=== PATIENT | female | born 1925 | race Caucasian/White ===

== ENCOUNTER → 2016-06-29 | Outpatient (CLI) | payer MEDICARE ==
[~2016-06-29] MED LIST: ACETAMINOPHEN; ALBUTEROL17 GM; ALENDRONATE SOD70 MG; ALENDRONATE SOD70 MG PO; ALEVE; ALEVE220 M1; AMLODIPINE BESYL5 MG; AMLODIPINE BESYL5 MG PO; ANASTROZOLE1 MG PO; ARIMIDEX1 MG; ASPIRIN81 M2 PO; BETAMETHASONE V15 GM; BETIMOL5 ML; BETIMOL5 ML OU; CALCIUM1 TAB.CHEW; COZAAR PO; CRESTOR; DESYREL50 MG DOB; FOSAMAX; FOSAMAX70 MG PO; GABAPENTIN300 MG; GABAPENTIN300 MG PO; HCTZ; HCTZ PO; HYDROCHLOROTH12.5 M1 PO; I-CAPS AREDS S1 EACH; ICAPS MV TAB1 TAB.EC PO; LATANOPROST2.5 ML; LATANOPROST2.5 ML OP; LORTAB 7.5-5001 TAB PO; LOSARTAN POTASS50 MG; LOSARTAN POTASS50 MG PO; LOTENSIN20 MG PO; NEURONTIN300 MG; NEURONTIN300 MG PO; NORVASC PO; PANTOPRAZOLE SO40 MG; PANTOPRAZOLE SO40 MG PO; PHENERGAN25 MG PO; PRAVASTATIN SOD40 MG; PRAVASTATIN SOD40 MG PO; PRAVASTATIN SOD80 MG PO; PREDNISONE PO; PRILOSEC20 M1 PO; SULAR; SYSTANE; SYSTANE 0.3-0.415 ML; SYSTANE EYE DROPS; SYSTANE ULTRA 010 ML OU; TESSALON PERLE100 M1 DOB; TIMOPTIC 0.5% OP5 M2 OD; VIBRAMYCIN100 M1; VITAL-D RX TABL1 TAB PO; VITAMIN D; ZETIA
--- NOTE | ~2016-06-29 | CT71 ---
[facility] A Service [facility] RADIOLOGY TEXT RESULTS PATIENT: ELAN VELARDE LOCATION: [facility] : [birth year] UNIT #: [id number] AGE: [address]: Onur Zendejas MD SEX: F ORDER DR: [id number] [facility]. [place], [place] [address] [id number] O MR#: [id number] Acc #: [id number] NAME: ELAN VELARDE. : 1925 SEX: F STUDY DATE/TIME: 06/29/2016 10:31 UNIT: [facility] ROOM: STUDY DESCRIPTION: CT Head Wo Contrast Attending Physician: Onur Zendejas Jr., M.D. Referring Physician: Onur Zendejas Jr., M.D. Ordering Physician: Onur Zendejas Jr., M.D. Primary Care Physician: Onur Zendejas Jr., M.D. MEDICAL IMAGING REPORT This report is preliminary unless electronic signature is present EXAM Head CT without contrast HISTORY Occipital and frontal headaches for the past 2 weeks. TECHNIQUE Axial images were obtained without contrast. This CT exam was performed with one or more of the following radiation dose reduction techniques: automatic exposure control, adjustment of mA and/or kV according to patient size, and iterative reconstruction. FINDINGS Generalized atrophy is noted. There is no evidence of mass lesion, hemorrhage or edema. No midline shift is seen. Extraaxial structures are unremarkable. IMPRESSION Atrophy. No acute findings. No significant change from the previous examination of 12/08/2014. Dictated by... Nick Yanes M.D. THIS IS AN ELECTRONICALLY VERIFIED REPORT Nick Yanes M.D. at 06/29/2016 4:29 PM JAJA/felix TD: 06/29/2016 11:44 JOB #: [id number] MEDICAL IMAGING REPORT [facility] A [facility] RADIOLOGY TEXT RESULTS PATIENT: ELAN VELARDE LOCATION: [facility] : [birth year] UNIT #: [id number] AGE: [address]: Onur Zendejas MD SEX: F ORDER DR: Page 1 of 1 COPY
== END | disposition home or self-care (01) ==
LOC: CCAT 09:32
DX: R51 Headache (principal); G31.9 Degenerative disease of nervous system, unspecified
CPT/HCPCS: 70450

== ENCOUNTER → 2016-08-26 | Outpatient (CLI) | payer MEDICARE ==
--- NOTE | ~2016-08-26 | BD1 ---
[facility] A Service of [facility] RADIOLOGY TEXT RESULTS PATIENT: ELAN VELARDE LOCATION: [facility] : [birth year] UNIT #: [id number] AGE: [address]: Onur Zendejas MD SEX: F ORDER DR: [id number] [address] [address] [id number] O MR#: [id number] Acc #: [id number] NAME: ELAN VELARDE : 1925 SEX: F STUDY DATE/TIME: 08/26/2016 10:16 UNIT: [facility] ROOM: STUDY DESCRIPTION: BD Dexa Bone Dens 1+ Site Attending Physician: Onur Zendejas Jr., M.D. Referring Physician: Onur Zendejas Jr., M.D. Ordering Physician: Onur Zendejas Jr., M.D. Primary Care Physician: Onur Zendejas Jr., M.D. MEDICAL IMAGING REPORT This report is preliminary unless electronic signature is present. EXAM Bone density, spine, hip, 08/26/2016. HISTORY Osteo. Family history of osteoporosis in sister. Current smoker 72 years. TECHNIQUE Bone density scanning performed, upper 4 lumbar vertebral segments and both proximal femurs in [age]-year-old 122-pound female. The prior study from [facility], December 2012, performed on a different machine and, therefore, trending could not be performed. L1-L4: Total bone mineral density 0.916 g/cm2, for a T-score of 2.2 standard deviations below the mean for a reference population of normal young individuals and a Z-score 0.1 standard deviation above the mean for age-match population. PROXIMAL LEFT FEMUR: Total bone mineral density 0.646 g/cm2, for a T-score 2.9 standard deviations below the mean for a reference population of normal young individuals and a Z-score 0.2 standard deviation below mean for age-match population. The left femoral neck bone mineral density is 0.698 g/cm2, for a T-score 2.4 standard deviations below the mean for a reference population of normal young individuals and a Z-score 0.3 standard deviation above the mean for age-matched population. PROXIMAL RIGHT FEMUR: Total bone mineral density 0.702 g/cm2, for a T-score 2.4 standard deviations below the mean for a reference population of normal young individuals and a Z-score 0.3 standard deviation above the mean for age-match population. In the right femoral neck specifically, bone mineral density is 0.731 g/cm2, for a T-score 2.2 standard deviations below the mean for a reference population of normal young individuals and a Z-score 0.6 standard deviation above the mean for age-matched population. [facility]. [facility] A Service of [facility] & 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 Patient felt to be at significantly increased risk for fracture. Treatment options may be considered. Continued surveillance is recommended. Dictated by... Onur Dupont M.D. THIS IS AN ELECTRONICALLY VERIFIED REPORT Onur Dupont M.D. at 08/31/2016 10:14 AM MALI/parviz TD: 08/26/2016 18:47 JOB #: [id number] MEDICAL IMAGING REPORT Page 1 of 1
== END | disposition home or self-care (01) ==
LOC: SRAD 09:21
DX: M81.0 Age-related osteoporosis without current pathological fracture (principal)
CPT/HCPCS: 77080

== ENCOUNTER → 2016-10-01 | Outpatient (CLI) | payer MEDICARE ==
--- NOTE | ~2016-10-01 | CT4 ---
[facility]. [facility] A Service of [facility] RADIOLOGY TEXT RESULTS PATIENT: ELAN VELARDE LOCATION: [facility] : [birth year] UNIT #: [id number] AGE: [address]: Onur Zendejas MD SEX: F ORDER DR: [id number] [place] [id number] O MR#: [id number] Acc #: [id number] NAME: ELAN VELARDE : 1925 SEX: F STUDY DATE/TIME: 10/01/2016 12:53 UNIT: [facility] ROOM: STUDY DESCRIPTION: CT Abd and Pelv Wo Cont Attending Physician: Onur Zendejas Jr., M.D. Ordering Physician: Onur Zendejas Jr., M.D. Primary Care Physician: Onur Zendejas Jr., M.D. MEDICAL IMAGING REPORT This report is preliminary unless electronic signature is present. EXAM CT abdomen and pelvis without contrast INDICATION Generalized abdominal pain. Bilateral flank pain for the past [address] of the abdomen and pelvis. This CT examination was performed with one or more of the following radiation dose reduction techniques: automatic exposure control, adjustment of mA and/or kV according to patient size, and iterative reconstruction. COMPARISON None. FINDINGS ABDOMEN WITHOUT CONTRAST: Included lung bases are clear. Liver, spleen, kidneys, adrenal glands, pancreas unremarkable. There are a few small stones in the gallbladder but no evidence for inflammation. Uncomplicated left sided colonic diverticula. Appendix is normal. No radiodense urinary system calculus or hydronephrosis. PELVIS WITHOUT CONTRAST: No radiodense bladder calculus. Previous hysterectomy. No pelvic mass. Pelvic floor insufficiency, with a small to moderate sized cystocele. No aggressive appearing bone lesion. IMPRESSION 1. No clearly acute finding. 2. Uncomplicated colonic diverticulosis. 3. Normal appendix. No radiodense urinary system calculus or hydronephrosis. 4. Pelvic floor insufficiency with a small to moderate sized cystocele. [facility] Service of [facility] RADIOLOGY TEXT RESULTS PATIENT: ELAN VELARDE LOCATION: [facility] : [birth year] UNIT #: [id number] AGE: [address]: Onur Zendejas MD SEX: F ORDER DR: Dictated by... Kameron Rose M.D. THIS IS AN ELECTRONICALLY VERIFIED REPORT Kameron Rose M.D. at 10/04/2016 8:27 AM TASHIA/renate TD: 10/03/2016 12:23 JOB #: [id number] MEDICAL IMAGING REPORT Page 1 of 1
== END | disposition home or self-care (01) ==
LOC: SCT 12:43
DX: R10.9 Unspecified abdominal pain (principal); K57.30 Diverticulosis of large intestine without perforation or abscess without bleeding; N81.10 Cystocele, unspecified
CPT/HCPCS: 74176